=== PATIENT | male | born 1990 | race Hispanic/Latino ===

== ENCOUNTER 2019-09-10 13:47 | Emergency (ER) | payer OTHER ==
[2019-09-10] MEDS ORDERED: Adacel (T-DAP) 0.5 ML SYRINGE ONE (13:56)
[2019-09-10] MEDS ORDERED: Bupivacaine 0.5% 10 ML VIAL ONE (13:56)
[2019-09-10] MEDS ORDERED: Bacitracin 1 PK ONE (13:56)
== END 2019-09-10 14:43 | disposition home or self-care (01) ==
LOC: SCSER 13:47
DX: S61.021A Laceration with foreign body of right thumb without damage to nail, initial encounter (principal); W45.8XXA Other foreign body or object entering through skin, initial encounter
CPT/HCPCS: 12002; 90471; 90715; J3490

== ENCOUNTER 2019-09-18 09:59 | Emergency (ER) | END 2019-09-18 10:35 | disposition home or self-care (01) | LOC: SCSER 09:59 | DX: S61.011D Laceration without foreign body of right thumb without damage to nail, subsequent encounter (principal) ==